=== PATIENT | male | born 1965 | race Caucasian/White ===

== ENCOUNTER 2024-12-03 16:43 | Emergency (ER) | payer BC, SELFPAY ==
[2024-12-03 16:44] VITALS: BP 198/98; PULSE 85; RESP 16; TEMP 36.7; O2SAT 96; BMI 35.4
[2024-12-03] MEDS: Ibuprofen 600 MG Tablet PO (18:00)
[2024-12-03] MEDS: oxyCODONE 5 MG Tablet PO (18:00)
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
[2024-12-03 18:19] VITALS: BP 188/101
== END 2024-12-03 18:26 | disposition home or self-care (01) ==
PROVIDERS: Emergency Provider Emergency Medicine; Visit Provider Emergency Medicine
DX: S83.206A Unspecified tear of unspecified meniscus, current injury, right knee, initial encounter (principal); X58.XXXA Exposure to other specified factors, initial encounter
CPT/HCPCS: 99285